=== PATIENT | female | born 1955 | race American Indian/Alaskan Native ===

== ENCOUNTER 2019-01-19 08:29 | Outpatient (CLI) | payer BC ==
--- NOTE | 2019-01-19 16:18 | Mammography Report ---
DIGITAL SCREENING MAMMOGRAM WITH CAD, 01/19/2019 INDICATION: Routine screening mammography. TECHNIQUE: Digital bilateral 2D mammography was obtained in the craniocaudal and mediolateral obliq ue projections. This examination was interpreted with the benefit of Computer-Aided Detection analysi s. COMPARISON: None available. Her previous mammogram was done in [place]. FINDINGS: Breast Density: The breasts are heterogeneously dense, which may obscure small masses. There is no evidence of dominant mass, suspicious calcifications or architectural distortion in eithe r breast. 2 right inner biopsy clips. IMPRESSION: No mammographic evidence of malignancy. Follow up recommendation: Routine yearly BI-RADS Category 2: Benign. A "normal" or negative report should not discourage follow up or biopsy of a clinically significant f inding. A written summary of these findings will be mailed to the patient. The patient will be entered into a mammography reporting system which will generate a reminder letter for the patient's next appointmen t at the appropriate interval. The [employer] recommends yearly mammograms starting at age 40 and continuing as l jonathan as a woman is in good health. Breast MRI is recommended for women with an approximate 20-25% or greater lifetime risk of breast cancer, including women with a strong family history of breast or ova tami cancer or who have been treated for Hodgkin's disease. Signer Name: Miles Corrales MD Signed: 01/19/2019 4:13 PM Workstation Name: [id number]
== END 2019-01-19 08:30 | disposition home or self-care (01) ==
LOC: SPVWC 08:29
PROVIDERS: ATTEND Family Medicine
DX: Z12.31 Encounter for screening mammogram for malignant neoplasm of breast (principal)
CPT/HCPCS: 77067

== ENCOUNTER 2020-05-01 07:34 | Outpatient (CLI) | payer BC ==
--- NOTE | 2020-05-01 09:12 | Ultrasound Report ---
ULTRASOUND ABDOMEN, COMPLETE INDICATION / CLINICAL INFORMATION: ABDOMINAL PAIN. COMPARISON: None available. FINDINGS: PANCREAS: No significant abnormality. ABDOMINAL AORTA: No significant abnormality. IVC: No significant abnormality. LIVER: Increased echogenicity suggesting fatty infiltration. No focal lesion is evident. GALLBLADDER: No significant abnormality. BILE DUCTS: No significant abnormality. Common bile duct measures 6 mm. KIDNEYS: Right: Mild cortical thinning. Left: Mild cortical thinning. SPLEEN: No significant abnormality. FREE FLUID: None. ADDITIONAL FINDINGS: None. IMPRESSION: 1. Findings suggestive of hepatic steatosis. 2. Mild cortical thinning, bilaterally. Findings can be seen in the setting of chronic medical renal disease. Signer Name: Eirc Chaudhary MD Signed: 05/01/2020 9:08 AM Workstation Name: [id number]
--- NOTE | 2020-05-01 09:55 | XRay Report ---
CHEST 2 VIEWS INDICATION / CLINICAL INFORMATION: COUGH. COMPARISON: None available. FINDINGS: SUPPORT DEVICES: None. HEART / MEDIASTINUM: No significant abnormality. LUNGS / PLEURA: No significant pulmonary or pleural abnormality. No pneumothorax. ADDITIONAL FINDINGS: No significant additional findings. IMPRESSION: 1. No acute findings. Signer Name: Anupam Paul MD Signed: 05/01/2020 9:51 AM Workstation Name: [id number]
== END 2020-05-01 07:35 | disposition home or self-care (01) ==
LOC: US 07:34
PROVIDERS: ATTEND Internal Medicine Cardiovascular Disease
DX: N28.89 Other specified disorders of kidney and ureter (principal)
CPT/HCPCS: 71046; 76700